=== PATIENT | female | born 1965 | race Two or more races ===

== ENCOUNTER 2020-05-27 10:04 | Outpatient (CLI) | payer OTHER | END 2020-05-27 23:59 | disposition home or self-care (01) | LOC: LAB 10:04 | PROVIDERS: ATTEND Specialist | DX: U07.1 COVID-19 (principal) | CPT/HCPCS: 87426; C9803 ×2; U0003 ==

== ENCOUNTER 2020-06-09 09:14 | Outpatient (CLI) | payer OTHER | END 2020-06-09 23:59 | disposition home or self-care (01) | LOC: LAB 09:14 | PROVIDERS: ATTEND Specialist | DX: Z01.812 Encounter for preprocedural laboratory examination (principal); Z20.822 Contact with and (suspected) exposure to COVID-19 | CPT/HCPCS: 87426; C9803; U0003 ==

== ENCOUNTER 2020-06-15 06:18 | Day surgery (SDC) | payer OTHER ==
[~2020-06-15 06:18] MED LIST: ANESTHESIA TRAY IN PYXIS 1 EA TRAY MC ONE
[2020-06-15] MEDS ORDERED: BUPIVACAINE 0.5 % PF 150 MG/30 ML VIAL ONE (06:34)
[2020-06-15] MEDS ORDERED: BACITRACIN 50000 UNITS/VIAL ONE (06:34)
== END 2020-06-15 09:05 | disposition home or self-care (01) ==
LOC: DS 06:18
PROVIDERS: ATTEND Specialist
DX: G56.01 Carpal tunnel syndrome, right upper limb (principal); E66.01 Morbid (severe) obesity due to excess calories; I10 Essential (primary) hypertension; E11.9 Type 2 diabetes mellitus without complications; Z79.84 Long term (current) use of oral hypoglycemic drugs; Z79.899 Other long term (current) drug therapy
CPT/HCPCS: 64721; 82962; A6402; J0690; J2704; J3490 ×2

== ENCOUNTER 2021-03-10 11:07 | Outpatient (CLI) | payer OTHER | END 2021-03-10 23:59 | disposition home or self-care (01) | LOC: LAB 11:07 | PROVIDERS: ATTEND Specialist | DX: Z20.822 Contact with and (suspected) exposure to COVID-19 (principal) | CPT/HCPCS: C9803; U0003 ==

== ENCOUNTER 2021-03-15 06:56 | Day surgery (SDC) | payer OTHER ==
[2021-03-15] MEDS ORDERED: MIDAZOLAM HCL 2 MG/2ML VIAL ONE (09:34)
[2021-03-15] MEDS ORDERED: BUPIVACAINE 0.25% 75 MG/30 ML VIAL ONE (09:46)
[2021-03-15] MEDS ORDERED: PROPOFOL 200 MG/20 ML VIAL IV ONE (10:01)
[2021-03-15] MEDS ORDERED: CEFAZOLIN 1 GM VIAL ONE (10:01)
== END 2021-03-15 11:15 | disposition home or self-care (01) ==
LOC: DS 06:56
PROVIDERS: ATTEND Specialist
DX: G56.02 Carpal tunnel syndrome, left upper limb (principal); I10 Essential (primary) hypertension; E78.5 Hyperlipidemia, unspecified; E11.9 Type 2 diabetes mellitus without complications; Z79.899 Other long term (current) drug therapy
CPT/HCPCS: 64721; 82962; A6402; J0690; J2250; J2704; J3490; J1885; J7030